=== PATIENT | female | born 1990 | race Caucasian/White ===

== ENCOUNTER 2017-05-31 00:22 | Emergency (ER) | payer MEDICAID ==
[~2017-05-31] VITALS: Ht 167.6 cm; Wt 90.7 kg
[2017-05-31 00:22] VITALS: BP_SYST 158
[2017-05-31] MEDS ORDERED: methylPREDNISolone SOD SUCC/PF 62.5 MG/ML VIAL IM ONE (00:45)
[2017-05-31] MEDS ORDERED: DIPHENHYDRAMINE INJ 50 MG/ML VIAL IM ONE (00:45)
[2017-05-31 01:30] VITALS: BP_SYST 136
== END 2017-05-31 01:30 | disposition home or self-care (01) ==
LOC: SED 00:22
DX: T78.1XXA Other adverse food reactions, not elsewhere classified, initial encounter (principal); R21 Rash and other nonspecific skin eruption; X58.XXXA Exposure to other specified factors, initial encounter
CPT/HCPCS: 96372; 99284; J1200; J2930